=== PATIENT | female | born 1960 | race African-American/Black ===

== ENCOUNTER 2021-12-28 10:16 | Inpatient (IN) | payer MEDICAID ==
[~2021-12-28] VITALS: Ht 167.6 cm; Wt 102.1 kg
[2021-12-28] MEDS ORDERED: FUROSEMIDE 40MG/4ML VIAL IV ONE (10:30)
[2021-12-28] MEDS ORDERED: NITROGLYCERIN OINT 1GM/INCH UDPKT TD ONE (10:30)
[2021-12-28] MEDS ORDERED: ENALAPRIL 1.25MG/ML VIAL 1ML IV ONE (10:30)
[2021-12-28] MEDS ORDERED: ENALAPRIL 1.25MG/ML VIAL 1ML IV SCH (13:30)
[2021-12-28] MEDS ORDERED: FUROSEMIDE 40MG/4ML VIAL IV SCH (13:30)
[2021-12-28] MEDS ORDERED: NITROGLYCERIN OINT 1GM/INCH UDPKT TD SCH (13:30)
[2021-12-28 13:34] LABS: CHLORIDE 106 mEq/L (98-107)
[2021-12-28 13:38] LABS: BASOPHILS % 1.1 % (0.0-2.0); EOSINOPHILS % 0.3 % (0.0-5.0); MEAN CORPUSCULAR HEMOGLOBIN 18.8 pg (28.0-32.0); MEAN PLATELET VOLUME 7.1 fl (7.4-10.4); MONOCYTES % 6.6 % (2.0-8.0); PLATELET 418 x1000/uL (130-400); RED BLOOD CELL COUNT 3.23 mill/uL (4.2-5.4); RED CELL DISTRIBUTION WIDTH 22.5 % (11.6-14.6)
[2021-12-28 13:58] LABS: HEMOGLOBIN. 6.1 g/dL (12.0-16.0)
[2021-12-28 14:21] LABS: PLATELET ESTIMATE INCREASED
[2021-12-28] MEDS ORDERED: HYDRALAZINE 20MG/ML VIAL IV ONE (14:45)
[2021-12-28] MEDS: FUROSEMIDE 40MG/4ML VIAL IVP SCH (17:15)
[2021-12-28] MEDS ORDERED: GUAIFENESIN 200MG/10ML SUGAR FREE UDC PO PRN (17:15)
[2021-12-28] MEDS ORDERED: CLONIDINE 0.1MG TABLET PO PRN (17:15)
[2021-12-28] MEDS ORDERED: IPRATROPIUM/ALBUTEROL 0.5-3(2.5)MG/3ML NEB NEB PRN (17:15)
[2021-12-28] MEDS ORDERED: ACETAMINOPHEN 325MG TABLET PO PRN (17:15)
[2021-12-28] MEDS ORDERED: DOCUSATE SODIUM 100MG CAPSULE PO PRN (17:15)
[2021-12-28] MEDS ORDERED: ONDANSETRON HCL 4MG/2ML INJ IV PRN (17:15)
[2021-12-28] MEDS ORDERED: NITROGLYCERIN 0.4MG TABLET SL SL PRN (17:15)
[2021-12-28] MEDS ORDERED: NA PHOS,M-B/NA PHOS,DI-BA ENEMA 118ML PR PRN (17:15)
[2021-12-28] MEDS ORDERED: MAGNESIUM/ALUMINUM HYDROXIDE/SIMETHICONE 30ML UDC PO PRN (17:15)
[2021-12-28 18:19] LABS: LDL CHOLESTEROL 40 mg/dL (5-100)
[2021-12-28 18:20] LABS: ETHANOL BLOOD < 10 mg/dL
[2021-12-28 18:21] LABS: HDL CHOLESTEROL 44 mg/dL (40-59); TOTAL IRON BINDING CAPACITY 435 ug/dL (250-450)
[2021-12-28 18:33] LABS: FOLIC ACID (FOLATE) SERUM 16.1 ng/mL (>5.38)
[2021-12-28] MEDS: AMLODIPINE 10MG TABLET PO SCH (19:37)
[2021-12-28 20:55] VITALS: BP 176/91
[2021-12-28] MEDS ORDERED: ZOLPIDEM TARTRATE 5MG TABLET PO PRN (21:00)
[2021-12-28] MEDS: PANTOPRAZOLE SODIUM 40 MG/VIAL IV SCH (23:26)
[2021-12-28] MEDS: METOPROLOL TARTRATE 25MG TABLET PO SCH (23:27)
[2021-12-28] MEDS: HYDRALAZINE HCL 50MG TABLET PO SCH (23:27)
[2021-12-28] MEDS: SPIRONOLACTONE 25MG TABLET PO SCH (23:27)
[2021-12-28] MEDS: DOXAZOSIN MESYLATE 4MG TABLET PO SCH (23:27)
[2021-12-28] MEDS: NITROGLYCERIN OINT 1GM/INCH UDPKT TD SCH (23:28)
[2021-12-29] MEDS ORDERED: FLUO20CA39 PO (00:10)
[2021-12-29] MEDS ORDERED: DIPH50CA38 PO (00:10)
[2021-12-29] MEDS ORDERED: ASPI-1406 PO (00:10)
[2021-12-29] MEDS ORDERED: ZIPR60CA6 PO (00:10)
[2021-12-29] MEDS ORDERED: LISI40TA13 PO (00:10)
[2021-12-29] MEDS ORDERED: SIMV10TA97 PO (00:10)
[2021-12-29] MEDS ORDERED: CLON0.1T PO (00:10)
[2021-12-29 04:00] VITALS: BP 154/79
[2021-12-29] MEDS: HYDRALAZINE HCL 50MG TABLET PO SCH ×3 (05:23→20:21)
[2021-12-29] MEDS: NITROGLYCERIN OINT 1GM/INCH UDPKT TD SCH ×3 (05:23→20:21)
[2021-12-29] MEDS: FUROSEMIDE 40MG/4ML VIAL IVP SCH ×2 (05:24→17:19)
[2021-12-29 07:17] LABS: *AMPHETAMINES SCREEN URINE NEGATIVE (NEGATIVE); *BARBITURATES SCREEN URINE NEGATIVE (NEGATIVE); *BENZODIAZEPINES SCREEN URINE NEGATIVE (NEGATIVE); *COCAINE SCREEN URINE PRESUMTIVE POSITIVE (NEGATIVE); METHADONE URINE SCREEN NEGATIVE (NEGATIVE); OPIATES URINE SCREEN NEGATIVE (NEGATIVE); PHENCYCLIDINE URINE SCREEN NEGATIVE (NEGATIVE)
[2021-12-29 07:19] LABS: CANNABINOID URINE SCREEN NEGATIVE (NEGATIVE)
[2021-12-29 08:00] VITALS: BP_SYST 136; BP_SYST 148; BP_DIAS 62; BP_DIAS 75
[2021-12-29] MEDS: AMLODIPINE 10MG TABLET PO SCH (09:55)
[2021-12-29] MEDS: METOPROLOL TARTRATE 25MG TABLET PO SCH ×2 (09:55→20:21)
[2021-12-29] MEDS: SPIRONOLACTONE 25MG TABLET PO SCH ×2 (09:55→20:20)
[2021-12-29 12:00] VITALS: BP 130/74
[2021-12-29 16:00] VITALS: BP 148/79
[2021-12-29 17:37] LABS: MEAN CORPUSCULAR HEMOGLOBIN 19.4 pg (28.0-32.0); MEAN PLATELET VOLUME 6.6 fl (7.4-10.4); PLATELET 358 x1000/uL (130-400); RED BLOOD CELL COUNT 3.44 mill/uL (4.2-5.4); RED CELL DISTRIBUTION WIDTH 25.9 % (11.6-14.6)
[2021-12-29 17:47] LABS: CHLORIDE 103 mEq/L (98-107)
[2021-12-29 17:55] LABS: PHOSPHORUS 3.6 mg/dL (2.5-4.9)
[2021-12-29 17:56] LABS: CREATINE KINASE MB FRACTION 2.2 ng/mL (0.5-3.6)
[2021-12-29 18:27] LABS: HEMOGLOBIN. 6.7 g/dL (12.0-16.0)
[2021-12-29 18:30] LABS: PLATELET ESTIMATE NORMAL
[2021-12-29 20:00] VITALS: BP 148/75
[2021-12-29] MEDS: DOXAZOSIN MESYLATE 4MG TABLET PO SCH (20:20)
[2021-12-29] MEDS: PANTOPRAZOLE SODIUM 40 MG/VIAL IV SCH (20:21)
[2021-12-30] VITALS (11 sets, daily range): BP systolic 133–164; BP diastolic 68–89
[2021-12-30 05:12] LABS: HEMATOCRIT 25.7 % (36.0-48.0); HEMOGLOBIN 7.8 g/dL (12.0-16.0)
[2021-12-30] MEDS: HYDRALAZINE HCL 50MG TABLET PO SCH ×3 (05:53→22:24)
[2021-12-30] MEDS: FUROSEMIDE 40MG/4ML VIAL IVP SCH ×2 (05:54→17:20)
[2021-12-30] MEDS: NITROGLYCERIN OINT 1GM/INCH UDPKT TD SCH ×3 (05:54→22:24)
[2021-12-30] MEDS: SPIRONOLACTONE 25MG TABLET PO SCH ×2 (09:18→22:23)
[2021-12-30] MEDS: METOPROLOL TARTRATE 25MG TABLET PO SCH ×2 (09:18→22:23)
[2021-12-30] MEDS: AMLODIPINE 10MG TABLET PO SCH (09:18)
[2021-12-30] MEDS: ACETAMINOPHEN 325MG TABLET PO PRN (17:14)
[2021-12-30 17:29] LABS: HEMATOCRIT 26.1 % (36.0-48.0); HEMOGLOBIN 7.8 g/dL (12.0-16.0)
[2021-12-30] MEDS: PANTOPRAZOLE SODIUM 40 MG/VIAL IV SCH (22:22)
[2021-12-30] MEDS: DOXAZOSIN MESYLATE 4MG TABLET PO SCH (22:23)
[2021-12-31] VITALS: BP 110/59
[2021-12-31] MEDS: ACETAMINOPHEN 325MG TABLET PO PRN ×2 (02:58→08:49)
[2021-12-31] MEDS: NITROGLYCERIN OINT 1GM/INCH UDPKT TD SCH ×3 (06:00→22:14)
[2021-12-31] MEDS: HYDRALAZINE HCL 50MG TABLET PO SCH ×3 (06:00→22:00)
[2021-12-31 07:00] LABS: BASOPHILS % 0.6 % (0.0-2.0); EOSINOPHILS % 2.1 % (0.0-5.0); HEMOGLOBIN. 7.7 g/dL (12.0-16.0); MEAN CORPUSCULAR VOLUME 68.4 fL (81.0-99.0); MEAN PLATELET VOLUME 8.7 fl (7.4-10.4); MONOCYTES % 10.5 % (2.0-8.0); NEUTROPHILS % 76.8 % (40.0-76.0); PLATELET 373 x1000/uL (130-400); RED BLOOD CELL COUNT 3.66 mill/uL (4.2-5.4); RED CELL DISTRIBUTION WIDTH 28.3 % (11.6-14.6)
[2021-12-31 07:11] LABS: CHLORIDE 101 mEq/L (98-107)
[2021-12-31 08:00] VITALS: BP 141/88
[2021-12-31] MEDS: SPIRONOLACTONE 25MG TABLET PO SCH ×2 (08:16→22:14)
[2021-12-31] MEDS: AMLODIPINE 10MG TABLET PO SCH (08:16)
[2021-12-31] MEDS: METOPROLOL TARTRATE 25MG TABLET PO SCH ×2 (08:17→22:15)
[2021-12-31] MEDS: FUROSEMIDE 40MG/4ML VIAL IVP SCH ×2 (09:32→18:02)
[2021-12-31 12:00] VITALS: BP 97/60
[2021-12-31 16:00] VITALS: BP 165/91
[2021-12-31 20:00] VITALS: BP 110/62
[2021-12-31] MEDS: DOXAZOSIN MESYLATE 4MG TABLET PO SCH (21:00)
[2021-12-31] MEDS: PANTOPRAZOLE SODIUM 40 MG/VIAL IV SCH (22:13)
[2022-01-01 04:00] VITALS: BP 171/89
[2022-01-01] MEDS: HYDRALAZINE HCL 50MG TABLET PO SCH ×2 (06:37→14:25)
[2022-01-01] MEDS: NITROGLYCERIN OINT 1GM/INCH UDPKT TD SCH ×2 (06:38→14:25)
[2022-01-01] MEDS: FUROSEMIDE 40MG/4ML VIAL IVP SCH (06:38)
[2022-01-01 08:00] VITALS: BP 149/77
[2022-01-01] MEDS: SPIRONOLACTONE 25MG TABLET PO SCH (08:22)
[2022-01-01] MEDS: METOPROLOL TARTRATE 25MG TABLET PO SCH (08:22)
[2022-01-01] MEDS: AMLODIPINE 10MG TABLET PO SCH (08:22)
[2022-01-01] MEDS: ACETAMINOPHEN 325MG TABLET PO PRN (08:23)
[2022-01-01] MEDS ORDERED: SPIR25TA PO (11:20)
[2022-01-01] MEDS ORDERED: ASPI-1406 PO (11:20)
[2022-01-01] MEDS ORDERED: DOXA4TAB2 PO (11:20)
[2022-01-01] MEDS ORDERED: HYDR-4135 PO (11:20)
[2022-01-01] MEDS ORDERED: SIMV10TA97 PO (11:20)
[2022-01-01] MEDS ORDERED: LISI40TA13 PO (11:20)
[2022-01-01] MEDS ORDERED: FURO-151 PO (11:20)
[2022-01-01] MEDS ORDERED: AMLO10TA80 PO (11:20)
[2022-01-01] MEDS ORDERED: CLON0.1T PO (11:20)
[2022-01-01 11:29] VITALS: BP 150/85
[2022-01-01 12:00] VITALS: BP 150/85
[2022-01-01] MEDS ORDERED: LISINOPRIL 40MG TABLET PO SCH (13:00)
[2022-01-01] MEDS ORDERED: CLONIDINE 0.1MG TABLET PO SCH (14:00)
[2022-01-01] MEDS ORDERED: FLUOXETINE HCL 20MG CAPSULE PO SCH (14:00)
== END 2022-01-01 17:00 | disposition home or self-care (01) | DRG 133 ==
LOC: ER 10:27 → ENRESERV 19:31 → 7EST 21:31
PROVIDERS: ADMIT Internal Medicine; ATTEND Internal Medicine
PROC: 30233N1 Transfusion of Nonautologous Red Blood Cells into Peripheral Vein, Percutaneous Approach (ICD-10-PCS; principal; 2021-12-28)
DX: J96.00 Acute respiratory failure, unspecified whether with hypoxia or hypercapnia (principal); N17.0 Acute kidney failure with tubular necrosis; I50.33 Acute on chronic diastolic (congestive) heart failure; E44.0 Moderate protein-calorie malnutrition; I11.0 Hypertensive heart disease with heart failure; E83.51 Hypocalcemia; D64.9 Anemia, unspecified; Z20.822 Contact with and (suspected) exposure to COVID-19; F17.210 Nicotine dependence, cigarettes, uncomplicated; I16.1 Hypertensive emergency; Z68.36 Body mass index [BMI] 36.0-36.9, adult; Z79.899 Other long term (current) drug therapy
CPT/HCPCS: 36415; 71045; 76770; 80053; 80061; 80305; 80320; 82550; 82553; 82607; 82746; 82962; 83036; 83540; 83550; 83735; 83880; 84100; 84443; 84484; 85014; 85018; 85025; 86850; 86900; 86920; 87426; 93005; 93306; 93970; 97162; 99291; C9113; J0360; J1940; J3490; P9016; G0480